=== PATIENT | male | born 1985 | race Two or more races ===

== ENCOUNTER 2024-09-11 19:07 | Emergency (ER) | payer SELFPAY ==
[~2024-09-11] VITALS: Ht 152.4 cm; Wt 76.2 kg
[2024-09-11] MEDS ORDERED: KETOROLAC TROMETHAMINE 15 MG/ML VIAL ONE (19:58)
[2024-09-11] MEDS: KETOROLAC TROMETHAMINE 15 MG/ML VIAL IM ONE (20:05)
[2024-09-11 20:56] VITALS: BP 135/80; TEMP 98.6; O2SAT 99
== END 2024-09-11 20:57 | disposition home or self-care (01) ==
LOC: ER 19:11
DX: M25.552 Pain in left hip (principal); M25.562 Pain in left knee; M25.572 Pain in left ankle and joints of left foot
CPT/HCPCS: 99284; 96372; 73610; 73503; 73564; J1885; 73502